=== PATIENT | female | born 1960 | race Hispanic/Latino ===

== ENCOUNTER 2022-06-15 17:41 | Emergency (ER) | payer BC ==
[~2022-06-15] VITALS: Ht 167.6 cm; Wt 68.0 kg
[2022-06-15 19:47] VITALS: BP 143/88
== END 2022-06-15 19:56 | disposition home or self-care (01) ==
LOC: EDH 17:41
DX: K59.00 Constipation, unspecified (principal); M79.672 Pain in left foot; F41.9 Anxiety disorder, unspecified